=== PATIENT | female | born 1960 | race Caucasian/White ===

== ENCOUNTER 2024-08-04 06:16 | Day surgery (SDC) | payer BC ==
[~2024-08-04 06:16] MED LIST: LACTATED RINGERS 1,000 ML IV SCH
[2024-08-04] MEDS: IV FLUID CONTINUATION 1,000 ML IV ONE ×2 (06:47→07:11)
[2024-08-04 06:49] VITALS: RESP 18; TEMP 97
[2024-08-04] MEDS ORDERED: PROPOFOL 10 MG/ML 20 ML VIAL IV ONE (07:12)
[2024-08-04 07:53] VITALS: BP 129/68; PULSE 65
[2024-08-04 07:55] LABS: Basophils % (A) 1 %; Eosinophils # (A) 0.2 k/uL (0-0.7); Eosinophils % (A) 3 %; HCT 36.9 % (34.0-46.0); HGB 11.9 gm/dL (11.4-16.0); Lymphocytes # (A) 1.9 k/uL (1.0-4.8); Lymphocytes % (A) 38 %; MCH 31.8 pg (25.0-35.0); MCHC 32.3 g/dL (31.0-37.0); MCV 98.4 fL (80.0-100.0); Monocytes # (A) 0.3 k/uL (0-1.0); Monocytes % (A) 5 %; Neutrophils # (A) 2.6 k/uL (1.3-7.7); Neutrophils % (A) 51 %; Platelet Count 266 k/uL (150-450); RBC 3.75 m/uL (3.80-5.40); RDW 14.7 % (11.5-15.5); WBC 5.1 k/uL (3.8-10.6)
[2024-08-04] MEDS: ACETAMINOPHEN TAB 500 MG TAB PO STA (07:55)
[2024-08-04 08:18] LABS: Rouleaux Present
--- NOTE | 2024-08-04 14:22 | OP ---
OPERATIVE REPORT DATE OF SERVICE : 08/04/2024 PROCEDURE PERFORMED: Bone marrow aspirate and biopsy. INDICATIONS: Leukopenia and monoclonal gammopathy. DESCRIPTION OF PROCEDURE: After obtaining proper consent from the patient, the procedure was performed in the endoscopy suite under general anesthesia, performed by Anesthesia team. The patient was put in the left lateral decubitus position. The right posterior superior iliac crest was localized. The skin was cleansed with ChloraPrep. All sterile procedures were followed. 2 mL of 2% Xylocaine was used for local anesthetic. Jamshidi needle was inserted, 15 mL of aspirate and 2 cm core biopsy were obtained without any difficulties. Pressure applied afterwards. There was negligible blood loss. The patient tolerated the procedure very well without any immediate complications. MMODL / IJN: [id number] /
[2024-08-04 15:00] LABS: Reticulocyte % 1.46 % (0.10-1.80)
== END 2024-08-04 08:31 ==
LOC: OR 06:16
PROVIDERS: ATTEND Internal Medicine Hematology & Oncology
DX: D47.2 Monoclonal gammopathy (principal); D72.819 Decreased white blood cell count, unspecified; I10 Essential (primary) hypertension; Z87.891 Personal history of nicotine dependence
CPT/HCPCS: 85025; 85045; 38222; J2704

== ENCOUNTER → 2024-08-29 | Outpatient (CLI) | payer BC ==
--- NOTE | 2024-08-31 09:00 | PE ---
EXAMINATION TYPE: PET CT fusion skull to thigh DATE OF EXAM: 08/29/2024 CLINICAL INDICATION:Female, 64 years old with history of C90.00 multiple myeloma; TECHNIQUE: Following the intravenous administration of 11.24 mCi of F-18 FDG, whole body images are performed from the skull vertex to below the knees. Images are reviewed on the computer in the cole nal, axial, and sagittal planes. Reconstructed rotating images are created on independent workstatio n and reviewed on the computer. A non-contrast CT is performed in conjunction with the PET scan. Gl ucose level 92 mg/dL CT DLP: 752.30 mGycm, Automated exposure control for dose reduction was used. COMPARISON: CT 05/04/2016, PET/CT None, MRI: None FINDINGS: Mediastinal SUV mean is 2.1. Hepatic parenchyma SUV mean is 2.7. SKULL BASE AND NECK: Focus of radiotracer identified within the left mandible molar with associated periapical lucency. De monstrates a maximum SUV 7.5. Consistent with periodontal disease. CHEST, MEDIASTINUM, AND HILAR REGION: No suspicious radiotracer activity. ABDOMEN AND PELVIS: No suspicious radiotracer activity. MUSCULOSKELETAL STRUCTURES: No suspicious radiotracer activity. OTHER CT: Multilevel degenerative changes of the spine. Bilateral AC joint arthropathy. Elevation of the right hemidiaphragm. Degenerative changes of the pubic symphysis. Mild atherosclerotic calcificat ion the abdominal aorta. Small fat filled umbilical hernia. IMPRESSION: 1. No suspicious radiotracer activity corresponding to reported history of multiple myeloma. 2. Focal radiotracer uptake identified within the left mandibular molar with periapical lucency. Con sistent with infectious/inflammatory periodontal disease. [facility], , 08/31/2024 8:57 AM
== END | disposition home or self-care (01) ==
LOC: RADPETMAIN 07:00
PROVIDERS: ATTEND Internal Medicine Hematology & Oncology
DX: C90.00 Multiple myeloma not having achieved remission (principal); K42.9 Umbilical hernia without obstruction or gangrene
CPT/HCPCS: 78815; A9552